=== PATIENT | male | born 1985 | race Caucasian/White ===

== ENCOUNTER 2017-01-01 01:34 | Emergency (ER) | payer OTHER ==
[2017-01-01] MEDS ORDERED: Sodium Chloride 0.9% 10 ML Syringe FLUSH PRN (01:39)
[2017-01-01] MEDS ORDERED: ceFAZolin 2 GM in Premix Bag 1 BAG IV ONE (01:41)
[2017-01-01] MEDS ORDERED: Lactated Ringers 1,000 ML IV SCH (01:45)
[2017-01-01] MEDS ORDERED: Iopamidol 755 Mg/ML 100 ML Bottle IVPUSH ONE (02:04)
[2017-01-01 02:06] VITALS: BP 122/85
[2017-01-01] MEDS ORDERED: Lidocaine 1% with EPINEPHrine 1:100,000 20 ML MDV INJECT ONE (02:22)
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
--- NOTE | 2017-01-01 12:21 | CT ---
CT chest Technique: Multiple axial sections through the chest were obtained. Intravenous contrast was utilized. Comparison: Previous chest x-ray performed earlier on the same day. Findings: Increased density seen within the left pectoralis region with mild increased density within the subcutaneous fat and mild haziness within the pectoralis muscle felt compatible with injury. No significant hematoma is seen. Fatty infiltration noted within the liver. No pericardial effusion is seen. Mediastinum and hilar regions show no adenopathy or mass. Lungs are clear with no pulmonary contusion. Minimal atelectasis within the left base is seen. Minimal left-sided pleural effusion is seen. No pneumothorax is identified. Bone window settings were reviewed which show mild endplate irregularity within several mid thoracic levels which is developmental. No acute bony abnormality is identified. Impression: 1. Findings compatible with soft tissue injury within the left anterior chest involving subcutaneous fat and pectoralis muscle. No significant hematoma is seen. 2. Mild atelectasis within the left base with minimal pleural effusion. 3. Other incidental findings. Diagnostic code #3 Agree with preliminary report issued by [facility] (preliminary [facility] report dictated on 01/01/17, 3:09 AM Central Time)
== END 2017-01-01 07:57 | disposition home or self-care (01) ==
LOC: JD.ED 01:34
DX: S21.91XA Laceration without foreign body of unspecified part of thorax, initial encounter (principal); F32.9 Major depressive disorder, single episode, unspecified; F10.120 Alcohol abuse with intoxication, uncomplicated
CPT/HCPCS: 13101; 36415; 71260; 80053; 80306; 81001; 83690; 84484; 85025; 93005; 96365; 99285; J0690; J7050; J7120; Q9967; 12032; 99284-25